=== PATIENT | male | born 1965 | race Caucasian/White ===

== ENCOUNTER 2017-08-08 12:11 | Emergency (ER) | payer OTHER ==
[~2017-08-08] VITALS: Ht 175.3 cm; Wt 109.0 kg
[2017-08-08 12:15] VITALS: TEMP 36.8; Ht 175.3 cm; Wt 109.0 kg
[2017-08-08 12:28] VITALS: O2SAT 92
[2017-08-08] MEDS ORDERED: ASPIRIN 324 MG CHEW PO STA (12:31)
[2017-08-08 13:09] LABS: BASO % 0.4 %; BASO ABS # 0.02 K/uL (0-0.2); COMPLETE YES; EOS % 1.5 %; HEMATOCRIT 38.2 % (42-52); IG% 0.2 %; LYMPH % 27.1 %; LYMPH ABS # 1.45 K/uL (1.2-3.4); MEAN CELL VOLUME 99.2 fL (80-100); MEAN CORPUSCULAR HEMOGLOBIN 36.4 pg (25-34); MEAN CORPUSCULAR HGB CONC 36.6 g/dl (32-36); MEAN PLATELET VOLUME 9.4 fL (7.4-10.4); MONO % 7.5 %; NEUT % 63.3 %; PLATELET COUNT 119 K/uL (130-400); RED BLOOD COUNT 3.85 M/uL (4.7-6.1); WHITE BLOOD COUNT 5.35 K/uL (4.8-10.8)
--- NOTE | 2017-08-08 13:18 | DIAGNOSTIC IMAGING REPORT ---
CHEST ONE VIEW PORTABLE HISTORY: Atypical Chest Pain COMPARISON: None. FINDINGS: The lungs are clear. Cardiac silhouette is normal in size. No pleural effusions. No pneumothorax. Old, healed right clavicle fracture. IMPRESSION: No acute process. Electronically signed by: Jacobo Oliva M.D. 08/08/2017 1:17 PM Dictated Date/Time: 08/08/2017 1:08 PM
[2017-08-08 13:29] LABS: BLOOD UREA NITROGEN 14 mg/dl (7-18); BUN/CREATININE RATIO 15.3 (10-20); CALCIUM 7.9 mg/dl (8.5-10.1); CARBON DIOXIDE 24 mmol/L (21-32); CHLORIDE 108 mmol/L (98-107); CREATININE 0.92 mg/dl (0.60-1.40); GLUCOSE 90 mg/dl (70-99); POTASSIUM 3.7 mmol/L (3.5-5.1); SODIUM 141 mmol/L (136-145)
[2017-08-08 14:40] VITALS: BP 119/86; PULSE 84; O2SAT 93
--- NOTE | 2017-08-08 18:09 | EMERGENCY ROOM VISIT NOTE ---
History Report prepared by Guru: [facility] Under the Supervision of: Dr. Sergo Valle D.O. First contact with patient: 12:19 Chief Complaint: CHEST PAIN Stated Complaint: CHEST PAIN History of Present Illness The patient is a 52 year old male who presents to the Emergency Room with complaints of constant right sided chest pain that began 1 year ago. He states that his pain is always there and does not change. However, he states that his pain is currently significantly better than it usually is. This HPI is limited secondary to the patient's intoxication. He is an alcoholic who drinks a fifth of 100 proof schnapps every single day. 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 He notes that he is short of breath as well. Patient denies diabetes, hypertension , hyperlipidemia, CAD, history of sudden at a young age, and smoking. No nausea vomiting or diarrhea. No blood in stool. Coughing up blood. No other chest pain. No arm pain. No jaw pain. No diaphoresis. Palpation of the chest makes it worse. Source of History: patient History Limited By: intoxication Onset: 1 year ago Position: chest (right) Symptom Intensity: moderate Quality: ache Timing: constant Associated Symptoms: + SOB Note: He is intoxicated. Review of Systems ROS is limited secondary to the patient's intoxication. Past Medical & Surgical Medical Problems: (1) Alcoholism Family History Unable to obtain secondary to the patient's intoxication. Social History Smoking Status: Current Every Day Smoker Alcohol Use: heavy Marital Status: Occupation Status: employed Current/Historical Medications No Active Prescriptions or Reported Meds Allergies Coded Allergies: No Known Allergies (Unverified , 08/08/17) Physical Exam Vital Signs Date Time Temp Pulse Resp B/P (MAP) Pulse Ox O2 Delivery O2 Flow Rate FiO2 08/08/17 14:40 84 20 119/86 93 08/08/17 13:58 84 20 119/86 93 Room Air 08/08/17 12:31 85 08/08/17 12:28 92 Room Air 08/08/17 12:28 92 Room Air 08/08/17 12:15 36.8 91 20 158/99 93 Room Air Physical Exam GENERAL: Sitting up in bed, visibly intoxicated with the smell of alcohol on his breath, slurring his words, well nourished, no distress, non-toxic EYE EXAM: Conjunctiva injected bilaterally. OROPHARYNX: no exudate, no erythema, lips, buccal mucosa, and tongue normal and mucous membranes are moist NECK: supple, no nuchal rigidity, no adenopathy, non-tender LUNGS: Clear to auscultation. Normal chest wall mechanics HEART: no murmurs, S1 normal and S2 normal CHEST: Reproducible right anterior chest wall pain. ABDOMEN: abdomen soft, non-tender, normo-active bowel sounds, no masses, no rebound or guarding. BACK: Back is symmetrical on inspection and there is no deformity, no midline tenderness, no CVA tenderness. SKIN: no rashes and no bruising UPPER EXTREMITIES: upper extremities are grossly normal. LOWER EXTREMITIES: Calves equal bilaterally. NEURO EXAM: Normal sensorium, cranial nerves II-XII grossly intact, normal speech, no gross weakness of arms, no gross weakness of legs. Medical Decision & Procedures ER Provider Diagnostic Interpretation: Radiology results as stated below per my review and the radiologist's interpretation: CHEST ONE VIEW PORTABLE HISTORY: Atypical Chest Pain COMPARISON: None. FINDINGS: The lungs are clear. Cardiac silhouette is normal in size. No pleural effusions. No pneumothorax. Old, healed right clavicle fracture. IMPRESSION: No acute process. Electronically signed by: Jacobo Oliva M.D. 08/08/2017 1:17 PM Dictated Date/Time: 08/08/2017 1:08 PM Laboratory Results 08/08/17 12:53 Red Blood Count 3.85, Mean Corpuscular Volume 99.2, Mean Corpuscular Hemoglobin 36.4, Mean Corpuscular Hemoglobin Concent 36.6, Mean Platelet Volume 9.4, Neutrophils (%) (Auto) 63.3, Lymphocytes (%) (Auto) 27.1, Monocytes (%) (Auto) 7.5, Eosinophils (%) (Auto) 1.5, Basophils (%) (Auto) 0.4, Neutrophils # (Auto) 3.39, Lymphocytes # (Auto) 1.45, Monocytes # (Auto) 0.40, Eosinophils # (Auto) 0.08, Basophils # (Auto) 0.02 08/08/17 12:53 Test 08/08/17 12:53 White Blood Count 5.35 K/uL (4.8-10.8) Red Blood Count 3.85 M/uL (4.7-6.1) Hemoglobin 14.0 g/dL (14.0-18.0) Hematocrit 38.2 % (42-52) Mean Corpuscular Volume 99.2 fL (80-100) Mean Corpuscular Hemoglobin 36.4 pg (25-34) Mean Corpuscular Hemoglobin Concent 36.6 g/dl (32-36) Platelet Count 119 K/uL (130-400) Mean Platelet Volume 9.4 fL (7.4-10.4) Neutrophils (%) (Auto) 63.3 % Lymphocytes (%) (Auto) 27.1 % Monocytes (%) (Auto) 7.5 % Eosinophils (%) (Auto) 1.5 % Basophils (%) (Auto) 0.4 % Neutrophils # (Auto) 3.39 K/uL (1.4-6.5) Lymphocytes # (Auto) 1.45 K/uL (1.2-3.4) Monocytes # (Auto) 0.40 K/uL (0.11-0.59) Eosinophils # (Auto) 0.08 K/uL (0-0.5) Basophils # (Auto) 0.02 K/uL (0-0.2) RDW Standard Deviation 45.5 fL (36.4-46.3) RDW Coefficient of Variation 12.7 % (11.5-14.5) Immature Granulocyte % (Auto) 0.2 % Immature Granulocyte # (Auto) 0.01 K/uL (0.00-0.02) D-Dimer 370 ug/L FEU (0-500) Anion Gap 9.0 mmol/L (3-11) Est Creatinine Clear Calc Drug Dose 114.3 ml/min Estimated GFR () 110.4 Estimated GFR (Non- 95.3 BUN/Creatinine Ratio 15.3 (10-20) Calcium Level 7.9 mg/dl (8.5-10.1) Troponin I < 0.015 ng/ml (0-0.045) Ethyl Alcohol mg/dL 313.3 mg/dl (0-3) Laboratory results per my review. Medications Administered Medications (Trade) Dose Ordered Sig/Emerita Route Start Time Stop Time Status Last Admin Dose Admin Aspirin (Aspirin Chew) 324 mg NOW STAT PO 08/08/17 12:31 08/08/17 12:32 DC 08/08/17 13:02 324 MG ECG Indication: chest pain Rate (beats per minute): 92 Rhythm: sinus rhythm Findings: nonspecific-ST abn (Inferior), other (Normal axis) ED Course ED COURSE: Vital signs were reviewed and showed hypertension. The patients medical record was reviewed The above diagnostic studies were performed and reviewed. ED treatments and interventions as stated above. 1219: The patient was evaluated in room C10. A complete history and physical examination was performed. 1231: Ordered Aspirin 324 mg PO 1444: Upon reevaluation, the patient wanted to leave against my medical advice. After a long conversation with the patient's , she does not want the patient to stay for his repeat troponin. She understands the risks of not staying for a complete evaluation. The patient was signed out AMA. Medical Decision Differential diagnoses includes but is not limited to acute coronary syndrome, myocardial infarction, pericarditis, pulmonary embolus, aortic dissection, pneumonia, pneumothorax, musculoskeletal, shingles, esophageal. Patient is a 52-year-old male who is an alcoholic who presents to ER trunk signing is worse with his at bedside. He is complaining of right-sided chest pain. This has been present for the past year. Movement worsens the pain along with palpation. He notes that now his pain is nearly almost resolved but still present. CBC all BMP was unremarkable. Troponin was negative with pain greater than 8 hours. D-dimer was negative. Alcohol was 313. EKG was nondiagnostic. Patient pulled his IV out and requested to be discharged as we are doing nothing for him. Explained at length to the that his blood work was unremarkable with pain greater than 8 hours this is noncardiac especially since its reproducible. I did offer repeating a troponin that they declined. Discussed with Pt concerning signs and symptoms to watch out for. Pt was instructed to follow up with their PCP and discussed with the patient their option to return to the ED at anytime for persistent or worsening symptoms. The appropriate anticipatory guidance and out-patient management, including indications for return to the emergency department, were explained at length to the patient and understood. Medication Reconcilliation Current Medication List: was personally reviewed by me Blood Pressure Screening Patient's blood pressure: Elevated blood pressure Blood pressure disposition: Elevated BP felt to be situational Impression Primary Impression: Chest pain Additional Impression: Alcohol intoxication Scribe Attestation The scribe's documentation has been prepared under my direction and personally reviewed by me in its entirety. I confirm that the note above accurately reflects all work, treatment, procedures, and medical decision making performed by me. Departure Information Dispostion Against Medical Advice Prescriptions No Active Prescriptions or Reported Meds Referrals No Doctor, Assigned (PCP) Patient Instructions [facility] Health Problem Qualifiers Primary Impression: Chest pain Chest pain type: unspecified Qualified Codes: R07.9 - Chest pain, unspecified Additional Impression: Alcohol intoxication Complication of substance-induced condition: uncomplicated Qualified Codes: F10.920 - Alcohol use, unspecified with intoxication, uncomplicated
[2017-08-11] MEDS ORDERED: THM100 PO (15:18)
[2017-08-11] MEDS ORDERED: CTP1 PO (15:18)
[2017-08-11] MEDS ORDERED: PRT40 PO (15:18)
[2017-08-11] MEDS ORDERED: NRN600 PO (15:18)
[2017-08-11] MEDS ORDERED: NICO21DI4 TD (15:18)
[2017-08-11] MEDS ORDERED: FLV1 PO (15:18)
== END 2017-08-08 14:44 | disposition left against medical advice (07) ==
LOC: C.EDB 12:12 → C.EDC 14:44
DX: R07.9 Chest pain, unspecified (principal); F10.129 Alcohol abuse with intoxication, unspecified; Y90.8 Blood alcohol level of 240 mg/100 ml or more; F17.200 Nicotine dependence, unspecified, uncomplicated